=== PATIENT | female | born 1985 | race Asian ===

== ENCOUNTER 2025-07-16 19:13 | Emergency (ER) | payer OTHER, SELFPAY ==
[2025-07-16 19:16] VITALS: BP 106/60
[2025-07-16 20:47] VITALS: BMI 26.7
[2025-07-16 20:49] VITALS: BP 112/63
[2025-07-16 21:00] VITALS: BP 103/69
--- NOTE | 2025-07-16 21:03 | EDRN ---
Pt says she has been dizzy since yesterday and it has gotten worse today. Pt vomited twice today and has had nausea. Pt also notes headache and photophobia. Pt denies fever/chills, cp, sob, abd pain, urinary symptoms. Dizziness worse when pt
moves her head side to side.
[2025-07-16 21:10] LABS: Hematocrit 40.0 % (37.0-47.0); Hemoglobin 13.2 g/dL (12.0-16.0); Mean Corp Hgb Conc. 33.0 g/dL (33.0-37.0); Mean Corpuscular Volume 92.0 fL (81.0-99.0); Nucleated Red Blood Cells % 0 %; Platelet Count 201 10^3/uL (130-400); Red Cell Dist. Width 13.2 % (11.5-14.5)
--- NOTE | 2025-07-16 21:37 | ED.GENMED ---
History of Present Illness
General
Chief Complaint: Dizziness
Source: patient
Exam Limitations: none
Time Seen by Provider: 07/16/25 21:37
Nursing documentation reviewed up to this point in time: agreed with
History of Present Illness
History of Present Illness:
Note:
CHIEF COMPLAINT(S)
Dizziness for two days, associated with vomiting and difficulty walking.
HISTORY OF PRESENT ILLNESS
The patient is a 40-year-old female who presents with dizziness for the past two days. She had this before when she was . She reports that this episode is more severe than previous occurrences. The dizziness is constant today and began early
in the morning when she attempted to get up to use the bathroom; she was unable to stand due to the dizziness. The dizziness is described as a combination of feeling as though the room is spinning and a sensation that she might pass out. Seems to
improve with lying still on her left side. She notes an inability to walk without assistance due to the dizziness. In addition to dizziness, the patient has vomited twice, possibly leading to dehydration, and has experienced some diarrhea. She
denies having a fever. Her dizziness has worsened throughout the day, and although she tried various measures to improve it, there was no relief.
The patient reports her blood pressure was low during two separate checks earlier today. She also denies any numbness or tingling. On examination, her coordination appeared challenging, particularly noted with tasks involving fine motor skills and
pulling motions. She has no dysphagia, double vision, dysarthria.
PHYSICAL EXAM
General: Alert, no acute distress.
Skin: Warm, dry.
Head: Normocephalic, atraumatic.
Neck: Supple, trachea midline.
Eye, Ears, Nose, Mouth, and Throat: Oral mucosa moist.
Cardiovascular: Normal peripheral perfusion, No edema.
Respiratory: Respirations are non-labored.
Gastrointestinal: Abdomen nondistended.
Back: Normal range of motion, Normal alignment.
Musculoskeletal: Normal range of motion, decreased strength noted during examination involving arms, particularly with pulling.
Neurological: Alert and oriented to person, place, time, and situation, No focal neurological deficit observed, normal finger to nose, heel to bowles testing. Normal steady gait after treatment.
Psychiatric: Cooperative, appropriate mood & affect.
PLAN
- Administer intravenous fluids to address dehydration and low blood pressure.
- Administer meclizine for dizziness (vertigo).
- Administer anti-nausea medication.
- Perform a CT scan of the head to rule out central causes.
- Monitor blood pressure, especially upon changes in position, to evaluate for postural hypotension.
DIFFERENTIAL DIAGNOSIS
The Differential Diagnosis includes, in no particular order and is not limited to:
1. Inner ear disorder (vestibular neuritis or labyrinthitis)
2. Benign paroxysmal positional vertigo (BPPV)
3. Menieres disease
4. Dehydration
5. Orthostatic hypotension
6. Vestibular migraine
7. Cerebellar stroke
8. Central nervous system tumor
9. Viral gastroenteritis (with associated symptoms)
10. Medication-induced dizziness (if applicable medications were discussed)
Disposition:
SUMMARY OF ENCOUNTER
A 40-year-old female presented to the emergency department with dizziness, nausea, and vomiting, which began yesterday morning. Initially intermittent, the symptoms became more persistent and worsened with positional changes. On physical
examination, she appeared alert and in no acute distress, with no nystagmus noted and a non-focal neurological examination. She reported difficulty sitting up or walking due to severe dizziness. Labs, including CBC and CMP, were unremarkable. A CT
scan of the head showed no acute intracranial abnormality. Benign paroxysmal positional vertigo (BPPV) is suspected. The patient showed improvement with intravenous fluids, ondansetron, and meclizine. She requested to go home.
DISPOSITION
Discharge.
ASSESSMENT
The patients symptoms and physical findings suggest BPPV. The lack of acute intracranial abnormalities on the CT scan and improvement with fluids and medications support this assessment.
EMERGENCY TREATMENTS ADMINISTERED
Intravenous fluids, ondansetron, and meclizine.
PLAN
Discharge the patient with follow-up information for ENT provided. Discuss strict return precautions and ensure the patient is stable for discharge.
INDEPENDENT REVIEW OF LABS AND INTERPRETATION OF TESTS
My independent review of CBC and CMP is unremarkable. My independent CT scan of the head interpretation shows no acute intracranial abnormality.
PATIENT EDUCATION AND COUNSELING
The patient was educated about BPPV and advised on measures to manage dizziness. Strict return precautions were discussed.
FOLLOW-UP INSTRUCTIONS
The patient was provided with follow-up information for ENT.
MEDICATION RECONCILIATION
Meclizine and ondansetron were administered during the visit.
MEDICAL DECISION MAKING
-Complexity of Data Reviewed: No chronic conditions affecting care.
The differential diagnosis includes:
1. Benign paroxysmal positional vertigo (BPPV)
2. Inner ear disorder (vestibular neuritis or labyrinthitis)
3. Menieres disease
4. Dehydration
5. Orthostatic hypotension
6. Vestibular migraine
7. Cerebellar stroke
8. Central nervous system tumor
9. Viral gastroenteritis (with associated symptoms)
10. Medication-induced dizziness
-Data:
Category 1: My independent interpretation of a CT scan of the head shows no acute intracranial abnormality.
-Risk: Consideration of Admission/Observation: Escalation of care, including admission/observation, was considered given the complexity and risk of the patients presenting complaint, exam findings, and/or their underlying comorbidities. However,
ultimately I feel the patient is safe for outpatient management with close follow up. Reasoning: Work-up reassuring does not reveal any acute life/organ-threatening processes, patients symptoms well controlled upon reevaluation, reexamination is
reassuring, vitals are stable, patient agreeable with discharge, reliable for follow-up.
DIAGNOSIS
Benign paroxysmal positional vertigo (BPPV) - ICD-10: H81.1
12:42 am--
Update patient feeling better and requesting food. CT of the head unremarkable. Orthos negative. Suspect BPPV. Will continue IV fluids
Past History
Past History
ED Past Medical History: None
ED Past Surgical History: None
Social History
Tobacco: Non-smoker
Alcohol: None
Drug: None
Review of Systems
Review of Systems
All Other Systems: ROS reviewed and negative except as documented in HPI and ROS
Phy Exam
Physical Exam
Physical Exam:
see hpi
Course
Orders/Labs/Results
Orders:
Orders
07/16/25 19:21
Electrocardiogram (*1) Urgent
Reason for Study: Vertigo / Dizzy
EKG- Treatment ONCE
Test Result ONCE
07/16/25 20:59
Complete Blood Count/With Diff Urgent
07/16/25 21:27
Comprehensive Metabolic Panel Urgent
HCG, Serum Qualitative Screen Urgent
07/16/25 22:06
Orthostatic VS- Treatment ONCE
0.9% Sodium Chloride 1000 ml [Nss] 1,000 ml IV BOLUS
Meclizine [Antivert] 25 mg PO NOW STA
Ondansetron Injectable [Zofran] 4 mg IV NOW STA
07/16/25 22:08
CT Head W/o Iv Contrast Urgent
Comment:
Reason For Exam: dizziness, vomiting
Abnormal Lab Results
07/16/25 07/16/25
20:59 21:27
MPV 11.5 H fL
(7.4-10.4)
Glucose 100 H mg/dl
(70-99)
07/16/25 20:59
07/16/25 21:27
Vital Signs
Initial and Last Documented VS:
Initial Vital Signs
Temp Pulse Resp BP Pulse Ox
98.2 F 84 18 106/60 100
07/16/25 19:16 07/16/25 19:16 07/16/25 19:16 07/16/25 19:16 07/16/25 19:16
Last Documented Vital Signs
Temp Pulse Resp BP Pulse Ox
98.2 F 60 14 106/64 100
07/16/25 19:16 07/17/25 02:00 07/17/25 02:00 07/17/25 02:00 07/16/25 21:38
*Pulse Oximetry
SaO2: 100
Oxygen Mode of Delivery: Room air
Patient hypoxic: no
*Critical Care Note
Total Time (30-74mins, 75-104mins- exclusive of procedures): Not Applicable
ED Attending Note
-
Portions of this chart may have been created with voice recognition software.� Occasional wrong word or��sound alike� substitutions may have occurred due to the inherent limitations of voice recognition software.
Discharge Plan
Departure
Patient Disposition: Home (Routine Discharge)
Date of Disposition: 07/17/25
Time of Disposition: 01:57
Patient with high blood pressure during this ER visit?: No
Discharge Problem:
Dizziness
Instructions: Vertigo (a Type of Dizziness) (DC), BLOOD PRESSURE
Prescriptions:
New
meclizine 25 mg tablet
25 mg PO TID PRN (Reason: dizziness) Qty: 10 0RF
No Action
multivitamin Tablet
1 tab PO DAILY
cholecalciferol (vitamin D3) [Vitamin D3] 25 mcg (1,000 unit) Capsule
25 mcg PO DAILY
Referrals:
Anthony Valdivia MD [Active, Otology] - Call in 1-3 days for appt
UNKNOWN - PT NOT,INTERVIEWE [Family Provider]
Activity Restrictions/Additional Instructions:
As discussed, your blood work was unremarkable. Your ECG was normal. Your CT of the head was normal.
If you develop dizziness again, you can take meclizine. You can take 1 tablet every 6 hours as needed. Please call attached number to schedule follow-up appoint with ENT. Please follow-up with your primary care provider. PLEASE RETURN TO ER
SHOULD YOU DEVELOP ANY ACUTE WORSENING OF YOUR SYMPTOMS, INTRACTABLE NAUSEA OR VOMITING, CHEST PAIN OR SHORTNESS OF BREATH, NECK PAIN, VISUAL CHANGES, OR ANY OTHER SIGNS OR SYMPTOMS RECENTLY.
Interventions
Interventions:
*Risk Screen - Suicide Last Done: 07/16/25 19:16
*General Assessment Last Done: 07/16/25 19:16
*Neglect/Abuse Screening Last Done: 07/16/25 19:16
*ED- Fall Risk Assessment Last Done: 07/16/25 21:02
*Nursing Disposition Last Done: 07/17/25 02:19
ED- Neurological Assessment Last Done: 07/16/25 21:02
ED- Cardiac Assessment Last Done: 07/16/25 21:02
Discharge Date and Time
Discharge Date/Time: 07/17/25 02:19
Print Language: LIBYAN
[2025-07-16 21:58] LABS: HCG, Serum Qualitative Screen Negative
[2025-07-16 22:00] VITALS: BP 94/54
[2025-07-16 22:02] LABS: ALT (SGPT) 25 U/L (0-35); AST (SGOT) 29 U/L (14-36); Albumin 4.3 g/dl (3.5-5.0); Alkaline Phosphatase 47 U/L (38-126); Blood Urea Nitrogen 15 mg/dl (7-17); Calcium 9.5 mg/dl (8.4-10.2); Carbon Dioxide 27 mmol/L (22-30); Chloride 107 mmol/L (98-107); Estimated Creatinine Clearance 106 ml/min; Glucose 100 mg/dl (70-99); Potassium 4.1 mmol/L (3.5-5.1); Sodium 138 mmol/L (135-145); Total Protein 7.2 g/dl (6.3-8.2); eGFR > 60.00
[2025-07-16] MEDS: ZOFRAN 4 MG IV (22:23)
[2025-07-16 22:29] VITALS: BP 106/65; BP 109/67; BP 94/71; PULSE 57; PULSE 60; PULSE 76
[2025-07-16] MEDS: NSS 1000 IV (22:30)
[2025-07-16] MEDS: ANTIVERT 25 MG PO (22:31)
[2025-07-17 00:31] VITALS: BP 99/69
[2025-07-17 01:00] VITALS: BP 103/63
[2025-07-17 02:00] VITALS: BP 106/64
== END 2025-07-17 02:19 | disposition home or self-care (01) ==
LOC: EMR 19:13
PROVIDERS: EMERGENCY PHYSICIAN Student in an Organized Health Care Education/Training Program
DX: R42 Dizziness and giddiness (principal); E86.0 Dehydration
CPT/HCPCS: 99284; 96374; 96361; 70450; 80053; 84703; 85025; 93005